=== PATIENT | female | born 1985 | race Caucasian/White ===

== ENCOUNTER 2022-08-18 15:50 | Outpatient (CLI) | payer BC, OTHER, SELFPAY | END 2022-08-18 15:51 | disposition home or self-care (01) | LOC: LKVREF 08-22 12:37 | PROVIDERS: Visit Provider Nurse Practitioner Family | DX: R30.0 Dysuria (principal); N39.0 Urinary tract infection, site not specified | CPT/HCPCS: 87086; 87186 ==